=== PATIENT | male | born 1955 | race Caucasian/White ===

== ENCOUNTER 2021-03-08 09:27 | Emergency (ER) | payer BC, OTHER ==
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
== END 2021-03-08 11:40 | disposition home or self-care (01) ==
LOC: LB.ED 09:27
DX: S20.212A Contusion of left front wall of thorax, initial encounter (principal); V69.50XA Passenger in heavy transport vehicle injured in collision with unspecified motor vehicles in traffic accident, initial encounter; Y92.410 Unspecified street and highway as the place of occurrence of the external cause
CPT/HCPCS: 71046; 99284-25